=== PATIENT | male | born 2000 | race Two or more races ===

== ENCOUNTER 2019-12-20 17:33 | Emergency (ER) | payer SELFPAY ==
[~2019-12-20] VITALS: Ht 167.6 cm; Wt 52.2 kg
--- NOTE | 2019-12-20 17:35 | NUR ---
CALLED TO TRIAGE, NO ANSWER
[2019-12-20 17:56] VITALS: BP 126/90
--- NOTE | 2019-12-20 18:34 | NUR ---
Patient discharged to home in stable condition. Written and verbal after care instructions given with computational biologist sanjuana CHEN. Patient verbalizes understanding of instruction.
== END 2019-12-20 18:37 | disposition home or self-care (01) ==
LOC: ER 17:36
DX: J06.9 Acute upper respiratory infection, unspecified (principal)